=== PATIENT | female | born 1995 | race Caucasian/White ===

== ENCOUNTER 2016-11-15 14:53 | Emergency (ER) | payer MEDICAID ==
[2016-11-15] MEDS ORDERED: SODIUM CHLORIDE 0.9% 1,000 ML ONE (17:13)
[2016-11-15] MEDS ORDERED: CEFTRIAXONE 1 GM VIAL ONE (18:31)
[2016-11-15] MEDS ORDERED: SODIUM CHLORIDE 0.9% 100 ML IV ONE (18:31)
== END 2016-11-15 20:46 | disposition home or self-care (01) ==
LOC: ER 14:53
CPT/HCPCS: 36415; 76705; 80053; 81001; 81025; 83690; 85025; 87088; 87804; 87880; 96361; 96365

== ENCOUNTER 2016-12-04 11:39 | Emergency (ER) | payer MEDICAID | END 2016-12-04 12:22 | disposition home or self-care (01) | LOC: FASTR 11:39 | DX: H65.03 Acute serous otitis media, bilateral (principal); J09.X2 Influenza due to identified novel influenza A virus with other respiratory manifestations | CPT/HCPCS: 87804 ==